=== PATIENT | female | born 1935 | race Caucasian/White ===

== ENCOUNTER 2017-04-22 10:03 | Emergency (ER) | payer MEDICARE ==
[2016-06-28 11:00] VITALS: BMI 24.3
[~2017-04-22 10:03] MED LIST: ATIVAN0.5 MG PO; BAYER CHEWABLE81 MG PO; BLOOD PRESSURE PILL; CIMETIDINE200 MG PO; CO Q-10100 MG PO; FLINTSTONE1 TAB.CHEW PO; FUROSEMIDE40 MG PO; K-DUR20 MEQ PO; NAMENDA10 MG PO; NORVASC5 MG PO; OYST-CAL-5001 TAB PO; PRILOSEC20 MG PO; PROZAC10 MG PO; VITAMIN B COMPL1 TAB PO; ZOFRAN4 MG PO
[2017-04-22 10:43] LABS: EOSINOPHILS 1.2 % (0-7); HEMATOCRIT 42.5 % (36.0-48.0); HEMOGLOBIN 14.4 g/dL (12-16); IMMATURE GRANULOCYTES 0.1 % (0-5); LYMPHOCYTES 34.6 % (15-50); MCHC 33.9 g/dL (31.0-37.0); MCV 100.5 fL (80.0-100.0); MEAN PLATELET VOLUME 9.9 fL (7.4-10.4); MONOCYTES 8.7 % (2-11); NEUTROPHILS 54.4 % (40-80); PLATELET COUNT 101 10x3/uL (130-400); RBC 4.23 10x6/uL (4.00-5.40); RDW 14.4 % (11.5-14.5); WBC 7.3 10x3/uL (4.8-10.8)
[2017-04-22 11:00] LABS: ALBUMIN 3.2 g/dL (3.4-5.0); ANION GAP 14.3 mmol/L (8-16); BILIRUBIN - TOTAL 1.23 mg/dL (0.2-1.3); CALCIUM 9.6 mg/dL (8.5-10.1); CARBON DIOXIDE 29.1 mmol/L (21.0-32.0); CREATININE - SERUM 1.6 mg/dL (0.6-1.3); POTASSIUM - SERUM 3.4 mmol/L (3.5-5.1); PROTEIN - SERUM 7.5 g/dL (6.4-8.2)
[2017-04-22 11:01] LABS: APTT 27.3 SECONDS (22.8-39.4); INR 0.98 (0.85-1.17); PROTIME 12.9 SECONDS (11.6-15.0)
[2017-04-22 11:05] LABS: APPEARANCE CLEAR (CLEAR); BACTERIA FEW /hpf (NONE SEEN); BILIRUBIN NEGATIVE (NEGATIVE); COLOR DK YELLOW (YELLOW); EPITHELIAL CELLS 0-5 /hpf (0-5); GLUCOSE NEGATIVE (NEGATIVE); HYALINE CAST 0-5 /lpf (NONE SEEN); KETONE NEGATIVE (NEGATIVE); LEUKOCYTE ESTERASE TRACE (NEGATIVE); MUCUS <1+ /lpf (NONE SEEN); NITRITE NEGATIVE (NEGATIVE); PROTEIN NEGATIVE (NEGATIVE); SPECIFIC GRAVITY 1.015 (1.005-1.020); WHITE CELLS - URINE 0-5 /hpf (0-5)
== END 2017-04-22 13:35 | disposition home or self-care (01) ==
LOC: D.ER 10:03
PROVIDERS: Emergency Medicine
DX: R53.1 Weakness (principal); R00.0 Tachycardia, unspecified

== ENCOUNTER → 2017-06-06 10:11 | Outpatient (CLI) | payer MEDICARE ==
[2016-06-28 11:00] VITALS: BMI 24.3
[2017-06-06 11:48] LABS: BASOPHILS 0.8 % (0-2); EOSINOPHILS 2.5 % (0-7); HEMATOCRIT 38.1 % (36.0-48.0); HEMOGLOBIN 13.1 g/dL (12-16); LYMPHOCYTES 38.7 % (15-50); MCHC 34.4 g/dL (31.0-37.0); MEAN PLATELET VOLUME 10.5 fL (7.4-10.4); PLATELET COUNT 90 10x3/uL (130-400); RBC 3.85 10x6/uL (4.00-5.40); RDW 14.8 % (11.5-14.5); WBC 3.5 10x3/uL (4.8-10.8)
[2017-06-06 12:30] LABS: ALBUMIN 3.2 g/dL (3.4-5.0); BILIRUBIN - TOTAL 0.55 mg/dL (0.2-1.3); CALCIUM 9.2 mg/dL (8.5-10.1); CARBON DIOXIDE 28.1 mmol/L (21.0-32.0); CREATININE - SERUM 1.2 mg/dL (0.6-1.3); POTASSIUM - SERUM 4.1 mmol/L (3.5-5.1); PROTEIN - SERUM 6.7 g/dL (6.4-8.2); T4 THYROXINE 8.3 ug/dL (4.7-13.3); THYROID STIMULATING HORMONE 0.54 uIU/mL (0.36-3.74)
[2017-06-07 07:25] LABS: RAPID PLASMA REAGIN Non Reactive (Non Reactive)
[2017-06-07 09:15] LABS: FOLATE (FOLIC ACID) - SERUM >20.0 ng/mL (>3.0)
== END | disposition home or self-care (01) ==
LOC: D.CN 05-27 13:00
PROVIDERS: Psychiatry & Neurology Neurology
DX: G30.8 Other Alzheimer's disease (principal)

== ENCOUNTER 2017-11-18 14:44 | Emergency (ER) | payer MEDICARE ==
[2016-06-28 11:00] VITALS: BMI 24.3
[2017-11-18 15:55] LABS: BASOPHILS 0.2 % (0-2); EOSINOPHILS 0 % (0-7); HEMATOCRIT 38.8 % (36.0-48.0); HEMOGLOBIN 13.2 g/dL (12-16); IMMATURE GRANULOCYTES 0.3 % (0-5); LYMPHOCYTES 16.5 % (15-50); MCH 33.8 pg (26.0-34.0); MCV 99.2 fL (80.0-100.0); MEAN PLATELET VOLUME 9.6 fL (7.4-10.4); MONOCYTES 8.3 % (2-11); NEUTROPHILS 74.7 % (40-80); PLATELET COUNT 82 10x3/uL (130-400); RBC 3.91 10x6/uL (4.00-5.40); RDW 15.1 % (11.5-14.5); WBC 10.1 10x3/uL (4.8-10.8)
[2017-11-18 16:18] LABS: PLATELET ESTIMATE DECREASED
[2017-11-18 16:23] LABS: ALBUMIN 3.6 g/dL (3.4-5.0); ANION GAP 15.4 mmol/L (8-16); BILIRUBIN - TOTAL 1.22 mg/dL (0.2-1.3); CALCIUM 9.7 mg/dL (8.5-10.1); CARBON DIOXIDE 28.6 mmol/L (21.0-32.0); CREATININE - SERUM 1.5 mg/dL (0.6-1.3); PROTEIN - SERUM 6.8 g/dL (6.4-8.2)
== END 2017-11-18 18:28 | disposition home or self-care (01) ==
LOC: D.ER 14:44
PROVIDERS: Emergency Medicine
DX: J20.9 Acute bronchitis, unspecified (principal); J06.9 Acute upper respiratory infection, unspecified; K21.9 Gastro-esophageal reflux disease without esophagitis; I10 Essential (primary) hypertension